=== PATIENT | male | born 1975 | race African-American/Black ===

== ENCOUNTER 2021-01-22 12:29 | Emergency (ER) | payer SELFPAY ==
[2021-01-22 12:30] VITALS: BP 160/95; PULSE 100; RESP 16; TEMP 36.6; O2SAT 99; BMI 28.7
[2021-01-22] MEDS: Penicillin Vk 250 MG Tablet 500 MG PO (14:03)
[2021-01-22] MEDS: HYDROcodone Bitartrate/Apap 5/325 Tablet PO (14:03)
[2021-01-22] MEDS: Lidocaine 2% Jelly 1 APPLIC Tube TOPICAL (14:03)
--- NOTE | 2021-01-22 14:32 | EDS_ITS ---
HPI History of Present Illness Chief Complaint: Dental Onset/Context/Timing Onset: Days (2) Context: Gradual Onset Timing: Continuous Quality: Sharp Location: Left lower jaw Associated Symptoms Assocated Symptom - Dental: jaw swelling, face swelling and hot sensitivity; Negative for fever or cold sensitivity Narrative Narrative: Patient presents with left lower dental pain and facial swelling that has been getting worse over the past 2 days. Patient describes his pain is sharp. Patient states the pain is over the left lower jaw. Patient admits to hot sensitivity. Patient denies any cold sensitivity. Patient denies any fevers or chills. Patient states nothing makes the pain better nothing makes it worse. Patient states he has been taking [id number] Tylenol and ibuprofen with minimal relief. PFSH PFSH Home Medications naproxen 500 mg PO BID PRN #20 tab 07/16/14 [Rx Last Taken Unknown] oxycodone-acetaminophen 1 - 2 tab PO Q4H PRN PRN #10 tab 07/16/14 [Rx Last Taken Unknown] penicillin V potassium 500 mg PO 4X/DAY #40 tab 01/22/21 [Rx Last Taken Unknown] Allergy/AdvReac Type Severity Reaction Status Date / Time No Known Allergies Allergy Verified 01/22/21 12:31 Social History Smoking Status: Current every day smoker tobacco type: cigarettes ROS ROS ED Constitutional Constitutional ED: Reports sweats; Denies chills or fever(s) Eyes Eyes: Denies blurry vision or change in vision ENT ENT ED: Denies rhinorrhea or sore throat Cardiovascular Cardiovascular: Denies chest pain or palpitations Respiratory/Chest Respiratory/Chest: Denies cough or dyspnea Gastrointestinal Gastrointestinal: Denies nausea or vomiting Genitourinary Genitourinary ED: Denies dysuria or hematuria Musculoskeletal Musculoskeletal: Reports neck pain; Denies back pain Integumentary Denies abscess or rash Neurologic Neurologic: Reports weakness; Denies headache(s) Allergic/Immunologic Allergic/Immunologic ED: Denies mouth swelling or urticaria EXAM Physical Exam Const Vital Signs: 01/22/21 12:30 Temperature 98 F Temperature Source Temporal Pulse Rate 100 Respiratory Rate 16 Blood Pressure 160/95 H Blood Pressure Mean 116 Pulse Ox 99 Oxygen Delivery Method Room Air Positive well nourished and well developed General Appearance ED: well developed HEENT HEENT Narrative: There is some fluctuance over the left lower gingival area along the first and second molars. There is no active discharge or drainage. Teeth and Gingiva: caries and gingiva abnormal Positive for gingival edema Eyes PERRL and EOMs intact bilaterally Neck supple and no JVD General: Negative for anterior neck swelling or submandibular swelling Lymph Lymphatic: no lymphadenopathy noted Neuro oriented x3, CN's II-XII intact bilaterally, moves all extremities, no focal motor deficits and no sensory deficits noted Sensorium / Orientation: alert Motor Exam: strength 5/5 throughout Psych mental status grossly normal MDM MDM MDM Narrative Medical decision making narrative: 2% lidocaine jelly was applied to the gingiva of the left lower molar area. An 18-gauge needle was used to aspirate approximately 3 cc of purulent and bloody drainage. Patient felt better after this. Patient was given a dose of Pen-Vee K and [place] here. Patient was given a prescription for Pen-Vee K. Patient was instructed to take Tylenol or ibuprofen as needed for pain. Patient was instructed to follow-up with a dentist in 5 to 7 days. Patient understood and was agreeable with the plan. All questions were answered. Discharge Plan Triage Chief Complaint: Dental ED Provider: Mike Moreno Dx/Rx/DC Orders Clinical Impression: Abscess, dental Instructions: ED Dental Abscess Prescriptions: New penicillin V potassium 500 MG tablet 500 mg PO 4X/DAY Qty: 40 RF: 0 Discontinued penicillin V potassium 500 MG tablet 500 mg PO 4X/DAY Qty: 40 RF: 0 No Action naproxen 500 MG tablet 500 mg PO BID PRN Qty: 20 RF: 0 oxycodone-acetaminophen 1 TABLET tablet 1 - 2 tab PO Q4H PRN PRN (Reason: Pain) Qty: 10 RF: 0 Primary Care Provider: Care Physician,No Primary Referrals: Care Physician,No Primary [Primary Care Provider] - Dentist,Your [STAFF PHYSICIAN] - 5-7 Days Disposition Disposition: Home, Self Care Discharge Date/Time: 01/22/21 14:49
== END 2021-01-22 14:49 | disposition home or self-care (01) ==
PROVIDERS: Emergency Provider Emergency Medicine
DX: K04.7 Periapical abscess without sinus (principal); F17.210 Nicotine dependence, cigarettes, uncomplicated
CPT/HCPCS: 41800; 99283